=== PATIENT | male | born 1975 | race Caucasian/White ===

== ENCOUNTER → 2018-12-02 10:24 | Outpatient (CLI) | payer MEDICARE, MEDICAID ==
[2018-12-02 11:17] LABS: AMYLASE - SERUM 44 U/L (25-115); LIPASE 102 U/L (73-393)
[2018-12-07 17:08] LABS: IGG SUBCLASS 1 QNS mg/dL (()); IGG SUBCLASS 2 QNS mg/dL (()); IGG SUBCLASS 3 QNS mg/dL (()); IGG SUBCLASS 4 QNS mg/dL (())
[2018-12-07 18:07] LABS: ANA REFLEX - DIRECT Negative (Negative)
== END | disposition home or self-care (01) ==
LOC: D.NM 10:24
PROVIDERS: ATTEND Internal Medicine Gastroenterology
DX: R11.2 Nausea with vomiting, unspecified (principal); K59.00 Constipation, unspecified; R10.84 Generalized abdominal pain; K86.1 Other chronic pancreatitis

== ENCOUNTER 2019-04-18 10:50 | Day surgery (SDC) | payer MEDICARE, MEDICAID ==
[~2019-04-18] VITALS: Ht 160 cm; Wt 59.1 kg
[2019-04-18 11:29] LABS: HEMATOCRIT 40.8 % (42.0-54.0); HEMOGLOBIN 13.9 g/dL (13.5-17.5); MCHC 34.1 g/dL (31.0-37.0); MCV 93.8 fL (80.0-100.0); MEAN PLATELET VOLUME 9.4 fL (7.4-10.4); RBC 4.35 10x6/uL (4.20-6.10); RDW 14.4 % (11.5-14.5); WBC 7.5 10x3/uL (4.8-10.8)
[2019-04-18 11:58] LABS: ALBUMIN 4.1 g/dL (3.4-5.0); ALKALINE PHOSPHATASE 48 U/L (46-116); ALT (SGPT) 22 U/L (10-68); BILIRUBIN - TOTAL 0.39 mg/dL (0.2-1.3); CALC OSMOLALITY 275 mosm/kg (275-300); CALCIUM 9.5 mg/dL (8.5-10.1); CARBON DIOXIDE 26.8 mmol/L (21.0-32.0); CHLORIDE - SERUM 103 mmol/L (98-107); CREATININE - SERUM 0.8 mg/dL (0.6-1.3); GLUCOSE 93 mg/dL (74-106); POTASSIUM - SERUM 4.4 mmol/L (3.5-5.1); PROTEIN - SERUM 7.5 g/dL (6.4-8.2); SODIUM 138 mmol/L (136-145); UREA NITROGEN 12 mg/dL (7-18); eGFR NON AFRICAN AMERICAN > 90 mL/min (90-120)
[2019-04-18] MEDS ORDERED: LIPITOR80 MG PO (12:41)
[2019-04-18] MEDS ORDERED: FLOMAX0.4 MG PO (12:42)
[2019-04-18] MEDS ORDERED: FENOFIBRATE160 MG PO (12:42)
[2019-04-18] MEDS ORDERED: PROTONIX40 MG PO (12:43)
[2019-04-18] MEDS ORDERED: LISINOPRIL20 MG PO (12:43)
[2019-04-18] MEDS ORDERED: ZENPEP (12:44)
[2019-04-18] MEDS ORDERED: ZENPEP PO (12:45)
[2019-04-18 12:46] VITALS: BP 133/85; Ht 160 cm; Wt 59.1 kg
--- NOTE | 2019-04-19 16:35 | OP ---
PATIENT NAME: EMILY MCCLENDON MEDICAL RECORD: [id number] :77 LOCATION:[facility] ADMISSION DATE: SURGEON: ARNOLD CARR DO DATE OF OPERATION: 04/18/2019 PROCEDURE: Colonoscopy. INDICATIONS FOR PROCEDURE: Generalized abdominal tenderness and nausea and vomiting. SCOPE: Olympus video pediatric colonoscope. MEDICATIONS: Propofol 180 mg IV per anesthesia. WITHDRAWAL TIME: 7 minutes. ESTIMATED BLOOD LOSS: None. COMPLICATIONS: None. FINDINGS: Informed consent was given. The patient was made comfortable with the above medication. After reaching an adequate level of sedation by slow IV push, the patient was placed on his left side. A digital rectal examination was performed and was normal. The endoscope was then advanced under direct visualization through the rectum to the cecum and terminal ileum. The endoscope was slowly withdrawn and the mucosa was carefully examined. The prep quality was fair. There were no polyps visualized on today's examination. No diverticula were seen. Retroflexion was performed in the rectum with visualization of a normal appearing rectal wall. The endoscope was withdrawn from the patient. The patient tolerated the procedure well and there were no complications. IMPRESSION: Normal colonoscopy to terminal ileum. PLAN AND RECOMMENDATIONS: 1. Discharge home when recovery parameters are met. 2. Continue current diet. 3. Continue current medications. 4. Recall colonoscopy at age 51 for colorectal cancer screening. TRANSINT:[id number] Voice Confirmation ID: [id number] DOCUMENT ID: [id number] ARNOLD CARR DO at 1635 CC: [id number] DICTATION DATE: 04/18/19 1324 FISH PROCESSING SUPERVISOR: 04/18/19 1331 [facility] 04/18/19 [id number] [place] [address]
== END 2019-04-18 14:25 | disposition home or self-care (01) ==
LOC: D.OPS 10:50
PROVIDERS: Anesthesiology; ATTEND Internal Medicine Gastroenterology
DX: R10.9 Unspecified abdominal pain (principal); R11.2 Nausea with vomiting, unspecified

== ENCOUNTER 2019-05-04 07:20 | Day surgery (SDC) | payer MEDICARE, MEDICAID ==
[~2019-05-04] VITALS: Ht 160 cm; Wt 53.6 kg
[~2019-05-04 07:20] MED LIST: FENOFIBRATE160 MG PO; FLOMAX0.4 MG PO; LIPITOR80 MG PO; LISINOPRIL20 MG PO; PROTONIX40 MG PO; ZENPEP; ZENPEP PO
[2019-05-04 07:51] LABS: HEMATOCRIT 42.7 % (42.0-54.0); HEMOGLOBIN 14.1 g/dL (13.5-17.5); MCH 31.4 pg (26.0-34.0); MCV 95.1 fL (80.0-100.0); MEAN PLATELET VOLUME 9.1 fL (7.4-10.4); RBC 4.49 10x6/uL (4.20-6.10); RDW 14.4 % (11.5-14.5); WBC 7.4 10x3/uL (4.8-10.8)
[2019-05-04 07:59] VITALS: BP 124/75; Ht 160 cm; Wt 53.6 kg
[2019-05-04 10:32] LABS: ALBUMIN 4.1 g/dL (3.4-5.0); ALKALINE PHOSPHATASE 50 U/L (46-116); ALT (SGPT) 18 U/L (10-68); BILIRUBIN - TOTAL 0.41 mg/dL (0.2-1.3); CALC OSMOLALITY 276 mosm/kg (275-300); CARBON DIOXIDE 25.1 mmol/L (21.0-32.0); CHLORIDE - SERUM 104 mmol/L (98-107); CREATININE - SERUM 0.7 mg/dL (0.6-1.3); GLUCOSE 114 mg/dL (74-106); LIPASE 448 U/L (73-393); POTASSIUM - SERUM 4.4 mmol/L (3.5-5.1); PROTEIN - SERUM 7.6 g/dL (6.4-8.2); SODIUM 139 mmol/L (136-145); UREA NITROGEN 8 mg/dL (7-18); eGFR NON AFRICAN AMERICAN > 90 mL/min (90-120)
[2019-05-04 10:33] LABS: CALCIUM 9.5 mg/dL (8.5-10.1)
--- NOTE | 2019-05-04 16:44 | OP ---
PATIENT NAME: EMILY MCCLENDON MEDICAL RECORD: [id number] :77 [facility] DATE: SURGEON: ARNOLD CARR DO DATE OF OPERATION: 05/04/2019 PROCEDURE: EGD with biopsies. INDICATIONS FOR PROCEDURE: Dysphagia, GERD, nausea and vomiting, generalized abdominal tenderness. SCOPE: Olympus video gastroscope. MEDICATIONS: Propofol 220 mg IV per anesthesia. ESTIMATED BLOOD LOSS: Minimal. COMPLICATIONS: None. FINDINGS: Informed consent was given. The patient was made comfortable with the above medication. After reaching an adequate level of sedation by slow IV push, the patient was placed on his left side. The endoscope was advanced under direct visualization through the mouth to the second portion of the duodenum. The esophagus appeared normal. 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 Cold forceps biopsies were taken from the squamocolumnar junction to submit for histopathology. The endoscope was advanced beyond the GE junction into the stomach and retroflexed to view the cardia and fundus, which appeared normal. Throughout the body of the stomach as well as the antrum and prepyloric regions, there was some gastritis characterized by erythema, granularity, and scattered erosions. Multiple cold forceps biopsies were taken from the body of the stomach as well as the antrum and incisura to submit for histopathology and to rule out the presence of H. pylori. The endoscope was advanced beyond the pylorus into the duodenum, which appeared normal to the second portion. The endoscope was then withdrawn from the patient. The patient tolerated the procedure well and there were no complications. IMPRESSION: 1. LA class C, reflux-induced esophagitis. 2. Gastritis. PLAN AND RECOMMENDATIONS: 1. Discharge home when recovery parameters are met. 2. Follow up biopsy specimen results. 3. GERD diet and reflux precautions. 4. Continue Protonix 40 mg daily in the a.m. 5. Add Pepcid 20 mg p.o. q.h.s. 6. Add Carafate 1 g tablets to be taken 3 times daily after dissolving in a small amount of water. We will use Carafate for 1 month to see if this helps symptoms. 7. Follow up in GI clinic in 1 month. 8. If continued symptoms, consider gastric emptying scan. 9. The patient has been referred to [facility] for consideration of EUS of his abnormal imaging findings involving the pancreaticobiliary system. TRANSINT:[id number] Voice Confirmation ID: [id number] DOCUMENT ID: [id number] OPERATIVE REPORT [id number] EMILY MCCLENDON NATHAN A DO at 1644 CC: [id number] DICTATION DATE: 05/04/19 0944 COLDFUSION: 05/04/19 1141 [facility] 05/04/19 [id number] [place] [address]
[2019-05-05] MEDS ORDERED: NUCYNTA50 MG PO (15:29)
== END 2019-05-04 11:30 | disposition home or self-care (01) ==
LOC: D.OPS 07:20
PROVIDERS: Anesthesiology; ATTEND Internal Medicine Gastroenterology
DX: K21.0 Gastro-esophageal reflux disease with esophagitis (principal); R13.10 Dysphagia, unspecified; R11.2 Nausea with vomiting, unspecified; K29.70 Gastritis, unspecified, without bleeding

== ENCOUNTER 2019-05-05 14:08 | Emergency (ER) | payer MEDICARE, MEDICAID ==
[~2019-05-05] VITALS: Ht 160 cm; Wt 54.5 kg
[2019-05-05 14:21] VITALS: Ht 160 cm; Wt 54.5 kg
[2019-05-05 15:20] LABS: BASOPHILS 0.3 % (0-2); EOSINOPHILS 1.8 % (0-7); HEMATOCRIT 38.8 % (42.0-54.0); HEMOGLOBIN 12.9 g/dL (13.5-17.5); MCH 31.5 pg (26.0-34.0); MCHC 33.2 g/dL (31.0-37.0); MCV 94.9 fL (80.0-100.0); MEAN PLATELET VOLUME 9.5 fL (7.4-10.4); MONOCYTES 9.5 % (2-11); NEUTROPHILS 63.4 % (40-80); PLATELET COUNT 223 10x3/uL (130-400); RBC 4.09 10x6/uL (4.20-6.10); RDW 14.3 % (11.5-14.5); WBC 7.9 10x3/uL (4.8-10.8)
[2019-05-05 15:25] LABS: AMYLASE - SERUM 60 U/L (25-115); LIPASE 419 U/L (73-393)
[2019-05-05] MEDS ORDERED: NUCYNTA50 MG PO (15:29)
[2019-05-05 20:23] VITALS: BP 145/90
== END 2019-05-05 20:59 | disposition home or self-care (01) ==
LOC: D.ER 14:08
PROVIDERS: Emergency Medicine
DX: K86.1 Other chronic pancreatitis (principal)

== ENCOUNTER 2019-05-09 12:56 | Inpatient (IN) | payer MEDICARE, MEDICAID ==
[~2019-05-09] VITALS: Ht 160 cm; Wt 52.3 kg
[~2019-05-09 12:56] MED LIST changes: +NUCYNTA50 MG PO
[2019-05-09 13:42] LABS: BASOPHILS 0.1 % (0-2); EOSINOPHILS 0.6 % (0-7); HEMATOCRIT 43.4 % (42.0-54.0); HEMOGLOBIN 14.6 g/dL (13.5-17.5); IMMATURE GRANULOCYTES 0.2 % (0-5); LYMPHOCYTES 13.9 % (15-50); MCH 31.9 pg (26.0-34.0); MCHC 33.6 g/dL (31.0-37.0); MONOCYTES 8.7 % (2-11); NEUTROPHILS 76.5 % (40-80); PLATELET COUNT 236 10x3/uL (130-400); RBC 4.57 10x6/uL (4.20-6.10); RDW 14.5 % (11.5-14.5); WBC 10.1 10x3/uL (4.8-10.8)
[2019-05-09 13:58] LABS: ALKALINE PHOSPHATASE 55 U/L (46-116); ALT (SGPT) 15 U/L (10-68); AMYLASE - SERUM 59 U/L (25-115); BILIRUBIN - TOTAL 0.42 mg/dL (0.2-1.3); CALC OSMOLALITY 270 mosm/kg (275-300); CALCIUM 9.4 mg/dL (8.5-10.1); CARBON DIOXIDE 25.9 mmol/L (21.0-32.0); CHLORIDE - SERUM 100 mmol/L (98-107); CREATININE - SERUM 0.7 mg/dL (0.6-1.3); GLUCOSE 113 mg/dL (74-106); LIPASE 643 U/L (73-393); POTASSIUM - SERUM 4.1 mmol/L (3.5-5.1); PROTEIN - SERUM 8.1 g/dL (6.4-8.2); SODIUM 136 mmol/L (136-145); UREA NITROGEN 8 mg/dL (7-18); eGFR NON AFRICAN AMERICAN > 90 mL/min (90-120)
[2019-05-09 14:29] LABS: APPEARANCE CLEAR (CLEAR); BILIRUBIN NEGATIVE (NEGATIVE); COLOR YELLOW (YELLOW); GLUCOSE NEGATIVE (NEGATIVE); KETONE NEGATIVE (NEGATIVE); NITRITE NEGATIVE (NEGATIVE); PROTEIN NEGATIVE (NEGATIVE); UROBILINOGEN NORMAL (NORMAL)
[2019-05-09 20:08] VITALS: Ht 160 cm; Wt 52.3 kg
[2019-05-09 20:24] VITALS: BP 136/78
[2019-05-10 00:30] VITALS: BP 120/64
[2019-05-10 05:11] VITALS: BP 154/70
[2019-05-10 05:36] LABS: BASOPHILS 0.2 % (0-2); EOSINOPHILS 1.3 % (0-7); HEMATOCRIT 41.5 % (42.0-54.0); HEMOGLOBIN 13.5 g/dL (13.5-17.5); IMMATURE GRANULOCYTES 0.2 % (0-5); LYMPHOCYTES 23.2 % (15-50); MCH 31.1 pg (26.0-34.0); MCHC 32.5 g/dL (31.0-37.0); MCV 95.6 fL (80.0-100.0); MEAN PLATELET VOLUME 9.1 fL (7.4-10.4); MONOCYTES 8.9 % (2-11); NEUTROPHILS 66.2 % (40-80); PLATELET COUNT 190 10x3/uL (130-400); RBC 4.34 10x6/uL (4.20-6.10); RDW 14.5 % (11.5-14.5)
[2019-05-10 05:47] LABS: WBC 6.3 10x3/uL (4.8-10.8)
[2019-05-10 06:21] LABS: CALC OSMOLALITY 277 mosm/kg (275-300); CALCIUM 8.8 mg/dL (8.5-10.1); CARBON DIOXIDE 24.7 mmol/L (21.0-32.0); CHLORIDE - SERUM 104 mmol/L (98-107); CREATININE - SERUM 0.7 mg/dL (0.6-1.3); GLUCOSE 83 mg/dL (74-106); MAGNESIUM - SERUM 2.4 mg/dL (1.8-2.4); POTASSIUM - SERUM 4.2 mmol/L (3.5-5.1); SODIUM 141 mmol/L (136-145); UREA NITROGEN 6 mg/dL (7-18); eGFR NON AFRICAN AMERICAN > 90 mL/min (90-120)
[2019-05-10 08:28] VITALS: BP 132/68
--- NOTE | 2019-05-10 08:34 | NUR ---
PATIENT AWAKE. CO NAUSEA. UNABLE TO GIVE ZOFRAN UNTIL 1030. FATHER IN ROOM. HE BROUGHT A SUITCASE. CL IN REACH. WCTM
[2019-05-10] MEDS ORDERED: KLONOPIN1 MG PO (08:55)
[2019-05-10] MEDS ORDERED: HYDROCODON-ACE1 EA10 PO (09:12)
[2019-05-10] MEDS ORDERED: CARAFATE1 G PO (09:12)
[2019-05-10] MEDS ORDERED: AMITIZA8 MCG PO (09:13)
--- NOTE | 2019-05-10 09:44 | NUR ---
PATIENT IN ROOM. HAS A SUCKER IN HIS MOUTH. UNDERSTANDS HE IS NPO. WENT BACK OVER MED REC. PATIENT WAS CONCERNED ABOUT HIS CLONAZEPAM. I TOLD HIM I WOULD TELL LIANG WADE APN. CL IN REACH. FATHER IN ROOM. NO FURTHER NEEDS AT THIS TIME. WCTM
[2019-05-10 13:05] LABS: UDS - AMPHET NEGATIVE QUAL (NEGATIVE); UDS - BARB NEGATIVE QUAL (NEGATIVE); UDS - BENZO NEGATIVE QUAL (NEGATIVE); UDS - COCAINE NEGATIVE QUAL (NEGATIVE); UDS - OPIATE POSITIVE QUAL (NEGATIVE); UDS - PCP NEGATIVE QUAL (NEGATIVE); UDS - THC NEGATIVE QUAL (NEGATIVE)
[2019-05-10 13:13] VITALS: BP 122/63
[2019-05-10 16:41] VITALS: BP 147/90
--- NOTE | 2019-05-10 18:36 | NUR ---
PATIENT CALLS SAYS HER IS IN PAIN. "WHO LET HIM EAT SPAGHETTI WITH HIM HAVING SEVERE PANCREATITIS." I REPLIED THE DOCTOR DENNYS IS THE ONE THAT PUT THAT ORDER IN. SAYS, "I WILL BE UP THERE TOMORROW WITH MY FORMING OPERATOR."
--- NOTE | 2019-05-10 18:50 | NUR ---
SPOKE WITH DR NOYOLA. NO DIET ORDER CHANGED. WILL REMAIN THE SAME. AND ABSOLUTELY NO IV PAIN MEDICATION.
[2019-05-10 20:49] VITALS: BP 128/80
[2019-05-11 01:12] VITALS: BP 124/74
--- NOTE | 2019-05-11 04:45 | NUR ---
1939)REC'D.AT GE OF SHIFT DURING WALKING ROUNDS ASKED WHEN AM I GOING TO GET MY IV PAIN MED.EXPLAINED IV PAIN MED HAS BEEN DISCONTINUED, ON ORAL PAIN MED NOW.STATES THAT'S SOME SHIT I TAKE NORCO AT HOME THEY DON'T DO SHIT FOR THE PAIN YOU BETTER CALL SOMEBODY CAUSE I'LL WALK OUT OF HERE.ISIDRO CAMPOS APN SYSTEM VALIDATION ENGINEER DISCUSSED IV PAIN MED ISSUE. NO NEW ORDERS PATIENT TO CONTINUE ORAL PAIN MED PRN PREVIOUSLY ORDERED.DISCUSSED WITH PT. VERY ANGRY STATES I WILL GO TO [facility] IN AM.WILL CONTINUE TO MONITOR FOR ANY CHGES AND FOLLOW CURRENT PLAN OF CARE
[2019-05-11 05:03] VITALS: BP 168/103
--- NOTE | 2019-05-11 05:18 | NUR ---
2044) [facility].WANTS TO KNOW WHY? INFORMED DON'T WHY BUT CALLED TALKED WITH PERISHABLE FREIGHT INSPECTOR JOI CAMPOS IN [facility] TO ABOVE INQUIRY. WILL CONTINUE ORAL PAIN MED PRN Q4HRS. PRN PAIN PREVIOUSLY ORDERED
--- NOTE | 2019-05-11 05:21 | NUR ---
I have reviewed this patient and I concur with the Shift Assessment completed by the Licensed Practical Nurse today this shift.
[2019-05-11 06:00] LABS: BASOPHILS 0.3 % (0-2); EOSINOPHILS 1.4 % (0-7); HEMATOCRIT 37.1 % (42.0-54.0); HEMOGLOBIN 12.2 g/dL (13.5-17.5); IMMATURE GRANULOCYTES 0.2 % (0-5); LYMPHOCYTES 21.4 % (15-50); MCH 31.2 pg (26.0-34.0); MCHC 32.9 g/dL (31.0-37.0); MCV 94.9 fL (80.0-100.0); MEAN PLATELET VOLUME 9.5 fL (7.4-10.4); NEUTROPHILS 66.7 % (40-80); PLATELET COUNT 175 10x3/uL (130-400); RBC 3.91 10x6/uL (4.20-6.10); RDW 14.2 % (11.5-14.5); WBC 6.4 10x3/uL (4.8-10.8)
[2019-05-11 06:34] LABS: CALC OSMOLALITY 277 mosm/kg (275-300); CALCIUM 8.3 mg/dL (8.5-10.1); CARBON DIOXIDE 24.8 mmol/L (21.0-32.0); CHLORIDE - SERUM 107 mmol/L (98-107); CREATININE - SERUM 0.6 mg/dL (0.6-1.3); GLUCOSE 92 mg/dL (74-106); LIPASE 475 U/L (73-393); MAGNESIUM - SERUM 2.1 mg/dL (1.8-2.4); PHOSPHOROUS 2.9 mg/dL (2.5-4.9); POTASSIUM - SERUM 4.2 mmol/L (3.5-5.1); SODIUM 141 mmol/L (136-145); eGFR NON AFRICAN AMERICAN > 90 mL/min (90-120)
[2019-05-11 06:35] LABS: UREA NITROGEN 3 mg/dL (7-18)
[2019-05-11 08:17] VITALS: BP 122/99
[2019-05-11 11:26] VITALS: BP 126/88
--- NOTE | 2019-05-11 13:07 | NUR ---
IV DCD WITH CATH TIP INTACT.DISCHARGE INSTRUCTIONS,STATES UNDERSTANDING
--- NOTE | 2019-05-11 13:08 | NUR ---
LEFT UNIT VIA WHEELCHAIR FOR TRANSPORT HOME.
--- NOTE | 2019-05-11 13:11 | NUR ---
PT DECLINES TO WAIT ON WHEELCHAIR AND LEFT AMBULATORY WITH AT SIDE.
== END 2019-05-11 13:12 | disposition home or self-care (01) | DRG 439 ==
LOC: D.ER 12:56 → D.MS 18:24
PROVIDERS: Emergency Medicine; ADMIT Internal Medicine Nephrology; ATTEND Internal Medicine Nephrology
DX: K85.90 Acute pancreatitis without necrosis or infection, unspecified (principal); F17.203 Nicotine dependence unspecified, with withdrawal; F11.20 Opioid dependence, uncomplicated; I10 Essential (primary) hypertension; E78.5 Hyperlipidemia, unspecified; M54.9 Dorsalgia, unspecified; K21.9 Gastro-esophageal reflux disease without esophagitis; R74.8 Abnormal levels of other serum enzymes